=== PATIENT | male | born 1950 | race Caucasian/White ===

== ENCOUNTER → 2023-03-12 | Outpatient (CLI) | payer OTHER | END | disposition home or self-care (01) | LOC: RAD 11:38 | PROVIDERS: ATTEND Family Medicine | DX: S09.8XXA Other specified injuries of head, initial encounter (principal); X58.XXXA Exposure to other specified factors, initial encounter; Y93.89 Activity, other specified; Y92.89 Other specified places as the place of occurrence of the external cause; Y99.8 Other external cause status | CPT/HCPCS: 70450 ==

== ENCOUNTER 2024-04-18 11:45 | Outpatient (CLI) | payer OTHER | END 2024-04-18 23:59 | disposition home or self-care (01) | LOC: RAD 11:45 | PROVIDERS: ATTEND Family Medicine | DX: J42 Unspecified chronic bronchitis (principal) | CPT/HCPCS: 71046 ==

== ENCOUNTER 2025-02-23 15:10 | Outpatient (CLI) | payer OTHER ==
--- NOTE | 2025-02-24 07:17 | RADIOLOGY REPORT ---
CLINICAL INDICATION: PAIN IN LEFT SHOULDER COMPARISON: None TECHNIQUE: Multiplanar, multisequence MRI of the left shoulder was performed without contrast. Contrast: None FINDINGS: Glenohumeral joint: There is no fracture or bone marrow edema. Alignment is maintained. Mild multi focal articular cartilage loss in the humeral head. There are small osteophytes in the humeral head. Chondral thinning is present in the glenoid with subchondral cysts. There is glenohumeral joint eff usion and synovitis. Acromioclavicular joint: The acromioclavicular joint is narrowed with capsular hypertrophy and osteo phytes. There is a type 1 acromion. Rotator cuff and bursae: There is severe supraspinatus tendinosis and there is a partial-thickness ar ticular surface tear. There is infraspinatus tendinosis and a partial-thickness bursal surface tear. Subscapularis tendinosis is present without tear. Teres minor tendon is intact. There is no regiona l muscle atrophy. No fluid distention of the subacromial subdeltoid bursa. Biceps tendon and glenoid labrum: The long head biceps tendon is located within the bicipital groove and intact. Degeneration and chronic tear involving the entire labrum. IMPRESSION: 1. Severe supraspinatus tendinosis and partial-thickness articular surface tear. 2. Infraspinatus tendinosis and partial-thickness bursal surface tear. 3. Subscapularis tendinosis without tear. 4. Glenohumeral and acromioclavicular joint osteoarthritis. 5. 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
== END 2025-02-23 23:59 | disposition home or self-care (01) ==
LOC: MRI02 15:10
PROVIDERS: ATTEND Orthopaedic Surgery
DX: S43.402A Unspecified sprain of left shoulder joint, initial encounter (principal); M75.112 Incomplete rotator cuff tear or rupture of left shoulder, not specified as traumatic; M19.012 Primary osteoarthritis, left shoulder; M19.112 Post-traumatic osteoarthritis, left shoulder; M19.2 Secondary osteoarthritis of other joints; M25.512 Pain in left shoulder; M25.712 Osteophyte, left shoulder; M25.812 Other specified joint disorders, left shoulder; M25.412 Effusion, left shoulder; M65.812 Other synovitis and tenosynovitis, left shoulder; M75.82 Other shoulder lesions, left shoulder; X58.XXXA Exposure to other specified factors, initial encounter; Y93.89 Activity, other specified; Y92.89 Other specified places as the place of occurrence of the external cause; Y99.8 Other external cause status
CPT/HCPCS: 73221